=== PATIENT | male | born 1960 | race Caucasian/White ===

== ENCOUNTER 2020-07-21 14:47 | Inpatient (IN) | payer OTHER, SELFPAY ==
[2020-07-20] MEDS: NIFEdipine 30 MG TAB.ER.24 PO SCH (22:30)
[~2020-07-21] VITALS: Ht 170.2 cm; Wt 116.6 kg
--- NOTE | 2020-07-21 14:47 | NUR ---
Patient to ER bed 5 to gown for evaluation. Side rails up
[2020-07-21 14:50] VITALS: BP_SYST 159
[2020-07-21] MEDS ORDERED: LORazepam 2 MG/ML VIAL ONE (15:10)
[2020-07-21] MEDS ORDERED: LORazepam 2 MG/ML VIAL IVP ONE ×2 (15:15)
--- NOTE | 2020-07-21 15:50 | NUR ---
Pt came to ER for chief complaint of SOB, present anxious and yelling. Pt on guryola at this time, KELLY, awaiting
--- NOTE | 2020-07-21 16:00 | NUR ---
ER at bedside examining patient.
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
--- NOTE | 2020-07-21 16:55 | NUR ---
Pt yelling "I want Oxy, I want Bristow, I want Ativan!" Pt is in ravalon banging vital signs monitor against wall and bedrail. Monitor moved
[2020-07-21 16:57] LABS: BILIRUBIN,URINE NEGATIVE (NEGATIVE); BLOOD, URINE 1+ (NEGATIVE); CLARITY/URINE SL CLOUDY (CLEAR); COLOR,URINE BROWN (YELLOW); GLUCOSE,URINE NEGATIVE (NEGATIVE); KETONES,URINE NEGATIVE (NEGATIVE); LEUKOCYTE ESTERASE ,URINE 2+ (NEGATIVE); NITRITE, URINE NEGATIVE (NEGATIVE); PH,URINE 8.5 (5.0-8.0); PROTEIN URINE 2+ (NEGATIVE); UROBILINOGEN,URINE 0.2 (0.2-1.0)
--- NOTE | 2020-07-21 17:00 | NUR ---
Pt refusing BP, will allow pulse ox
[2020-07-21 17:20] LABS: BACTERIA,URINE MANY /HPF (None Seen); MUCUS,URINE None Seen /LPF (None Seen); TRIPLE PHOSPHATE CRYSTAL,UR 0-10 /HPF (None Seen); WBC,URINE 50-80 /HPF (0-3)
[2020-07-21 17:30] LABS: BASOPHILS % (AUTO) 0.3 % (0.0-2.0); EOSINOPHILS # (AUTO) 0.1 K/uL (0.0-0.4); EOSINOPHILS % (AUTO) 1.2 % (0.0-4.0); HEMATOCRIT 23.2 % (36-54); HEMOGLOBIN 8.1 g/dL (14.0-18.0); LYMPHOCYTES # (AUTO) 0.4 K/uL (1.0-5.5); LYMPHOCYTES % (AUTO) 3.9 % (20.5-51.5); MEAN CORPUSCULAR HEMOGLOBIN 32 pg (27-31); MEAN CORPUSCULAR HGB CONC 35 % (32-36); MEAN CORPUSCULAR VOLUME 93 fL (79.0-98.0); MONOCYTES # (AUTO) 0.2 K/uL (0.0-1.0); MONOCYTES % (AUTO) 2.3 % (1.7-9.3); NEUTROPHILS % (AUTO) 92.3 % (40.0-70.0); PLATELET COUNT (AUTO) 286 K/uL (130-430); WHITE BLOOD COUNT (AUTO) 9.8 K/uL (4.8-10.8)
[2020-07-21 17:36] LABS: CALCIUM 11.1 mg/dL (8.4-11.0); CREATININE 6.95 mg/dL (0.55-1.30); POTASSIUM 5.6 mmol/L (3.5-5.1)
[2020-07-21 17:48] LABS: ALBUMIN 2.7 g/dL (3.4-4.8); TOTAL BILIRUBIN 0.5 mg/dL (0.0-1.0)
[2020-07-21] MEDS ORDERED: ONDANSETRON HCL 4 MG/2 ML VIAL IVP ONE (18:00)
[2020-07-21] MEDS ORDERED: MORPHINE 4 MG INJ. 4 MG/ML VIAL IVP ONE (18:00)
[2020-07-21] MEDS ORDERED: cefTRIAXone 1 GM IVPB PREMIX 50 ML IV ONE (18:15)
--- NOTE | 2020-07-21 19:00 | NUR ---
report received from YUE Mckeon
[2020-07-21] MEDS ORDERED: DOCU-144 PO (19:19)
[2020-07-21] MEDS ORDERED: NPH,100I SQ (19:19)
[2020-07-21] MEDS ORDERED: OXYC10SY PO (19:19)
[2020-07-21] MEDS ORDERED: NIFE60TA83 PO (19:19)
[2020-07-21] MEDS ORDERED: LOVI30 SQ (19:19)
[2020-07-21] MEDS ORDERED: ASPI-1393 PO (19:19)
--- NOTE | 2020-07-21 19:20 | NUR ---
Patient arrives with Polst stating full code.
[2020-07-21] MEDS ORDERED: NEPH PO (19:21)
[2020-07-21] MEDS ORDERED: POLY17PO4 PO (19:22)
[2020-07-21] MEDS ORDERED: AMIN30LI2 PO (19:24)
[2020-07-21] MEDS ORDERED: LEVO500T89 PO (19:25)
[2020-07-21] MEDS ORDERED: LACT10SO7 PO (19:28)
[2020-07-21] MEDS ORDERED: REN800 PO (19:29)
[2020-07-21] MEDS ORDERED: FAMO-129 PO (19:29)
[2020-07-21] MEDS ORDERED: SENN8.6T19 PO (19:30)
[2020-07-21] MEDS ORDERED: OXYB5TAB18 PO (19:31)
[2020-07-21] MEDS ORDERED: DULO60CA41 PO (19:31)
[2020-07-21] MEDS ORDERED: BUME2TAB7 PO (19:32)
[2020-07-21] MEDS ORDERED: HYDR-4039 PO (19:33)
[2020-07-21] MEDS ORDERED: LORA-258 PO (19:34)
[2020-07-21] MEDS ORDERED: HYDR-500 PO (19:35)
[2020-07-21] MEDS ORDERED: IPRA3AMP9 INH (19:39)
[2020-07-21] MEDS ORDERED: BENZ1LOZ58 PO (19:41)
[2020-07-21] MEDS ORDERED: SIME80TA15 PO (19:42)
[2020-07-21] MEDS ORDERED: TEMA15CA5 PO (19:43)
[2020-07-21] MEDS ORDERED: LORA-259 PO (19:43)
[2020-07-21] MEDS ORDERED: HYDR-3925 PO (19:45)
[2020-07-21] MEDS ORDERED: ACET325T PO (19:50)
[2020-07-21] MEDS ORDERED: CARB30DR14 EACH EYE (19:53)
[2020-07-21] MEDS ORDERED: ONDA4TAB5 PO (19:54)
[2020-07-21] MEDS ORDERED: [UNRECOGNIZED DRUG - CODE] PO (19:54)
[2020-07-21] MEDS ORDERED: TRIA15CR3 TP (19:58)
--- NOTE | 2020-07-21 19:58 | NUR ---
Transfer to TELEMETRY via ACLS protocol. Licensed nurse present. IV present no signs or symptoms of infiltration.
[2020-07-21] MEDS ORDERED: MYCOLOG15O TP (20:02)
--- NOTE | 2020-07-21 20:03 | NUR ---
Medication reconciliation completed [facility] Any prior medication reconciliation on file was reviewed and corrected.
[2020-07-21] MEDS ORDERED: cefTRIAXone 1 GM VIAL ONE (20:17)
--- NOTE | 2020-07-21 20:17 | NUR ---
Admission Note Received patient from ER with diagnosis of SOB, uti, fluid overload. Initial Plan of Care discussed-patient verbalized understanding. Oriented to room, call light, pain management and safety.
--- NOTE | 2020-07-21 20:35 | NUR ---
HIGH ALERT NOTE/Morphine Called Dr. Short back identified within the medical roster to verify physician authenticity. Order for morphine 4mg IM once.
[2020-07-21] MEDS ORDERED: LEVALBUTEROL Tartrate 15 GM HFA. 45 mCg/Actuation INH ONE (20:40)
[2020-07-21] MEDS ORDERED: MORPHINE 4 MG INJ. 4 MG/ML VIAL IM ONE (20:45)
[2020-07-21] MEDS ORDERED: MORPHINE 4 MG INJ. 4 MG/ML VIAL ONE (20:49)
[2020-07-21] MEDS ORDERED: BENZOCAINE/MENTHOL 1 EACH LOZENGE PO PRN (21:00)
[2020-07-21] MEDS ORDERED: LevALBUTEROL HCL 1.25 MG/0.5 ML *CONC.* VIAL.NEB (XOPENEX CONC.) INH PRN ×2 (21:00)
[2020-07-21] MEDS ORDERED: NYSTATIN/TRIAMCIN 15 GM TOPICAL OINTMENT TP SCH (21:00)
[2020-07-21] MEDS ORDERED: ACETAMINOPHEN 325 MG TABLET PO PRN (21:00)
[2020-07-21] MEDS ORDERED: TRIAMCINOLONE ACETONIDE 0.025% 80 GM CREAM.GM. TP SCH (21:00)
[2020-07-21] MEDS: methylPREDNISolone SOD SUCC/PF 62.5 MG/ML VIAL IVP SCH ×2 (21:00→22:00)
[2020-07-21] MEDS: SIMETHICONE 80 MG TAB.CHEW PO SCH (21:00)
[2020-07-21] MEDS: DOCUSATE SODIUM 100 MG CAPSULE PO SCH (21:00)
[2020-07-21] MEDS ORDERED: NALOXONE HCL 0.4 MG/ML AMP (NARCAN) IVP PRN (21:00)
--- NOTE | 2020-07-21 21:00 | NUR ---
TRANSFER TO ICU PATIENT TRANSFERRED TO ICU AT THIS TIME VIA GURNEY, ESCORTED BY RN AND RT. REPORT GIVEN TO ICU NURSE. PATIENT IN BED, AWAKE, AGITATED, YELLING "I CAN'T BREATHE". NON REBREATHER ATTACHED PROPERLY, ON 15L OF OXYGEN. HOB RAISED. REBOLLAR ATTACHED, SECURED, AND DRAINING BY GRAVITY. NO IV SITE AT THIS TIME, PREVIOUS IV WAS REMOVED DURING TRANSFER, NO BLEEDING NOTED. BED ALARM ON. BED IS LOCKED AND AT LOWEST POSITION.
--- NOTE | 2020-07-21 21:05 | NUR ---
Transfer Pt transferred via bed with RN and RT following ACLS protocol. Pt awake and agitated, yelling "I can't breathe". Pt on 15 L O2 via non rebreather. Lou catheter in place and draining to gravity. Bedside report obtained from RN. Call light within reach, bed locked and in lowest position, safety precautions in place.
[2020-07-21] MEDS: LevALBUTEROL HCL 1.25 MG/0.5 ML *CONC.* VIAL.NEB (XOPENEX CONC.) INH SCH (21:12)
[2020-07-21 21:15] LABS: PROTHROMBIN TIME 9.8 SECS (9.5-12.5)
[2020-07-21 21:30] VITALS: BP_SYST 125
--- NOTE | 2020-07-21 21:30 | NUR ---
Pt laying in bed agitated and yelling. Pt alert to self and sometimes to place. Reoriented and redirected pt, pt confused and continues to yell. Pt on 15 L Nonrebreather @ 100%, oxygen saturations maintained above 90%. Pt edematous all over, HR NSR. HD port to R) chest. Attempted to insert PIV without any success. Lou catheter in place and draining to gravity.Call light within reach, bed locked and in lowest position, safety precautions in place.
[2020-07-21 21:35] VITALS: BP_SYST 150
--- NOTE | 2020-07-21 21:55 | NUR ---
Sister Shelli called for consent for , consent granted. Provided updates for Shelli and questions answered.
[2020-07-21 22:00] VITALS: BP_SYST 72
[2020-07-21] MEDS: TEMAZEPAM 15 MG CAPSULE PO SCH (22:00)
[2020-07-21] MEDS: OXYBUTYNIN CHLORIDE 5 MG TABLET PO SCH (22:00)
[2020-07-21] MEDS: BUMETANIDE 1 MG TABLET PO SCH (22:00)
[2020-07-21] MEDS: SENNOSIDES 8.6 MG TABLET PO SCH (22:30)
[2020-07-21] MEDS: hydrALAZINE HCL 25 MG TABLET PO SCH (22:30)
--- NOTE | 2020-07-21 22:30 | NUR ---
Pt laying in bed with eyes closed and bipap on. Oxygen saturations above 90%, breathing even and unlabored. Pt drowsy and unable to safely take PO medications. HD RN at bedside and ready to begin HD. Turned and repositioned pt. Call light within reach, safety precautions in place.
[2020-07-21 23:00] VITALS: BP_SYST 102
[2020-07-21] MEDS ORDERED: LEVALBUTEROL Tartrate 15 GM HFA. 45 mCg/Actuation INH SCH (23:00)
--- NOTE | 2020-07-21 23:00 | NUR ---
HD RN at bedside, HD started pt tolerating well.
[2020-07-21] MEDS ORDERED: ALBUMIN HUMAN 25% 100 ML IV ONE (23:34)
[2020-07-22] VITALS (14 sets, daily range): BP systolic 92–138
[2020-07-22] MEDS: LevALBUTEROL HCL 1.25 MG/0.5 ML *CONC.* VIAL.NEB (XOPENEX CONC.) INH SCH ×4 (00:19→19:30)
[2020-07-22] MEDS ORDERED: LevALBUTEROL HCL 1.25 MG/0.5 ML *CONC.* VIAL.NEB (XOPENEX CONC.) INH SCH (01:00)
[2020-07-22] MEDS ORDERED: HEPARIN SODIUM,PORCINE 5,000 UNITS/ML VIAL ONE (01:13)
--- NOTE | 2020-07-22 04:00 | NUR ---
Full linen change, CHG done. Pt was agitated and yelling with cares. Pt redirected and reoriented.
--- NOTE | 2020-07-22 05:00 | NUR ---
IV PLACEMENT: # 22 gauge angiocath placed to right forearm. Use of asceptic technique. Opsite placed over site. Blood return noted. Flushed with 10 cc of normal saline. No evidence of infiltration noted.
[2020-07-22] MEDS: BUMETANIDE 1 MG TABLET PO SCH ×3 (06:00→22:43)
[2020-07-22] MEDS: hydrALAZINE HCL 25 MG TABLET PO SCH ×3 (06:00→22:00)
[2020-07-22] MEDS: OXYBUTYNIN CHLORIDE 5 MG TABLET PO SCH ×3 (06:00→22:42)
[2020-07-22] MEDS: methylPREDNISolone SOD SUCC/PF 62.5 MG/ML VIAL IVP SCH ×3 (06:40→22:43)
[2020-07-22] MEDS: INSULIN REGULAR, HUMAN 100 UNITS/ML, 10 ML VIAL (humuLIN R) SUBCUT PRN ×4 (06:50→20:47)
[2020-07-22 07:04] LABS: CALCIUM 10.1 mg/dL (8.4-11.0); CREATININE 5.05 mg/dL (0.55-1.30); POTASSIUM 4.6 mmol/L (3.5-5.1)
--- NOTE | 2020-07-22 07:25 | NUR ---
CLOSING NOTE Endorsed SBAR report to oncoming RN for continuity of care.
--- NOTE | 2020-07-22 07:25 | NUR ---
Received patient and report from director of business development nurse. Patient in bed with side rails x 3 up. Call light with in reach.
[2020-07-22] MEDS ORDERED: PEG 400/HYPROMELLOSE/GLYCERIN 15 ML DROPS OP PRN (07:30)
[2020-07-22 07:50] LABS: BASOPHILS # (AUTO) 0.1 K/uL (0.0-0.2); BASOPHILS % (AUTO) 0.5 % (0.0-2.0); EOSINOPHILS % (AUTO) 0.4 % (0.0-4.0); HEMOGLOBIN 8.4 g/dL (14.0-18.0); LYMPHOCYTES # (AUTO) 0.3 K/uL (1.0-5.5); LYMPHOCYTES % (AUTO) 2.9 % (20.5-51.5); MEAN CORPUSCULAR HEMOGLOBIN 32 pg (27-31); MEAN CORPUSCULAR HGB CONC 34 % (32-36); MEAN CORPUSCULAR VOLUME 93 fL (79.0-98.0); MONOCYTES # (AUTO) 0.4 K/uL (0.0-1.0); MONOCYTES % (AUTO) 3.8 % (1.7-9.3); NEUTROPHILS # (AUTO) 10.8 K/uL (1.8-7.7); NEUTROPHILS % (AUTO) 92.4 % (40.0-70.0); PLATELET COUNT (AUTO) 309 K/uL (130-430); RED BLOOD CELL COUNT(AUTO) 2.68 MIL/uL (4.2-6.2); RED CELL DISTRIBUTION WIDTH 13.2 % (9.0-15.0); WHITE BLOOD COUNT (AUTO) 11.7 K/uL (4.8-10.8)
--- NOTE | 2020-07-22 07:50 | NUR ---
Dr. Black at bedside. Provided patient update. Received order to transfer pending Pulmo okay to transfer.
--- NOTE | 2020-07-22 08:10 | NUR ---
Dr. Murrieta at bedside. Provided patient update. Received okay to transfer.
[2020-07-22] MEDS: SEVELAMER CARBONATE 800 MG TABLET PO SCH ×3 (08:57→17:07)
[2020-07-22] MEDS: DOCUSATE SODIUM 100 MG CAPSULE PO SCH ×2 (09:00→20:29)
[2020-07-22] MEDS: NEPHROVITE, (FOLIC ACID/VITAMIN B COMP W-C 1 TAB) PO SCH ×2 (09:00→09:07)
[2020-07-22] MEDS: ENOXAPARIN SODIUM 30 MG/0.3 ML SYRINGE SQ SCH ×2 (09:00→09:10)
[2020-07-22] MEDS: SIMETHICONE 80 MG TAB.CHEW PO SCH ×3 (09:00→20:28)
[2020-07-22] MEDS: DULoxetine HCL 30 MG CAPSULE.DR (CYMBALTA) PO SCH (09:00)
[2020-07-22] MEDS: NIFEdipine 30 MG TAB.ER.24 PO SCH ×3 (09:00→20:45)
[2020-07-22] MEDS: ASPIRIN 81 MG TABLET(ECOTRIN) PO SCH (09:00)
[2020-07-22] MEDS: FAMOTIDINE 20 MG TABLET PO SCH (09:01)
[2020-07-22] MEDS: LACTULOSE 20 GM/30 ML UDC PO SCH ×3 (09:07→20:29)
[2020-07-22] MEDS: HYDROcodone/ACETAMIN 10-325 MG TAB PO PRN ×4 (10:38→22:41)
--- NOTE | 2020-07-22 11:02 | NUR ---
Called MD Ma and informed despite prn NORCO given patient stating still experiencing 10/10 pain and requesting IVP for chronic generalized pain. MD Ma new order morphine 2 mg IVP every 2 hours.
[2020-07-22] MEDS ORDERED: MORPHINE 2 MG/ML INJ. SYRINGE ONE (11:06)
[2020-07-22] MEDS: MORPHINE 2 MG/ML INJ. SYRINGE IVP PRN ×3 (11:10→20:30)
--- NOTE | 2020-07-22 11:40 | NUR ---
Patient transferred to tele floor room 134 with second assist via bed. Portable tele monitor placed. Patient tolerated transfer well on 4 liters nasal cannula. Gave update and endorsed patient to MST nurse. Patient stated thank you for care.
--- NOTE | 2020-07-22 12:02 | NUR ---
Transfer to [facility] Received report from CRITICAL CARE PHYSICIAN ASSISTANT. Patient stable. on 4L, nasal cannula and tolerating well. Bed locked and in lowest position. Call light within reach. bed alarm on. Will continue to monitor.
[2020-07-22] MEDS: NYSTATIN/TRIAMCIN 15 GM TOPICAL CREAM TP SCH ×2 (12:30→20:42)
[2020-07-22] MEDS: TRIAMCINOLONE ACETONIDE 0.025% 15 GM CREAM.GM. TP SCH ×2 (12:30→20:42)
--- NOTE | 2020-07-22 12:40 | NUR ---
Patient stated missing scratching stick. Looked in ICU room 3 and MST room 121 but unable to locate scratching stick. Notified tank house operator.
[2020-07-22] MEDS: CALCIUM CARBONATE 500 MG/ TAB.CHEW PO PRN ×3 (13:57→22:41)
--- NOTE | 2020-07-22 14:06 | NUR ---
PAGED DR SCHREIBERD DR GRIMES FOR ORDERS
--- NOTE | 2020-07-22 14:26 | NUR ---
Spoke to PICC line nurse, informed him of patient's porticath in right chest and no access for left arm. Said patient needs to be cleared by nephrology first. Spoke with Dr. Lennon, ordered triple lumen IJ instead. Charge nurse Katia made aware. PICC nurse informed.
--- NOTE | 2020-07-22 14:39 | NUR ---
CONSULTATION PAGED/CALLED Reason for Consultation: PICC LINE INSERTION Person Who was Notified: RALPH Consulting Physician: MAREK MCDONOUGH Personnel Adviser Specialty: SURG Ordering Physician: BETY
--- NOTE | 2020-07-22 14:42 | NUR ---
CONSULTATION PAGED/CALLED Reason for Consultation: AGGITATION, SCREAMING Person Who was Notified: DR SANTIZO Consulting Physician: DR SANTIZO Gate Guard Specialty: PSYCH Ordering Physician: DHARA
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
[2020-07-22] MEDS: LORazepam 1 MG TABLET PO PRN ×2 (18:15→23:24)
--- NOTE | 2020-07-22 18:35 | NUR ---
CLOSING NOTE PATIENT IS SITTING UP IN BED, VERY ANXIOUS, SCREAMING. ATIVAN 0.5MG GIVEN. REBOLLAR CATHETER ATTACHED DRAINING BY GRAVITY. BED LOCKED AND IN LOWEST POSITION. CALL LIGHT WITHIN REACH. BED ALARM ON. WILL ENDORSE TO NIGHT NURSE.
[2020-07-22] MEDS: cefTRIAXone 1 GM in D5W 50 ML IV SCH (20:29)
[2020-07-22] MEDS: QUEtiapine FUMARATE 25 MG TABLET PO SCH (20:40)
[2020-07-22] MEDS: TEMAZEPAM 15 MG CAPSULE PO SCH (20:41)
[2020-07-22] MEDS: SENNOSIDES 8.6 MG TABLET PO SCH (20:44)
[2020-07-22] MEDS ORDERED: HEPARIN SODIUM,PORCINE 5,000 UNITS/ML VIAL MC ONE ×2 (21:15)
--- NOTE | 2020-07-22 22:15 | NUR ---
HIGH ALERT NOTE: written order from dr killian under dialysis order.
--- NOTE | 2020-07-22 23:03 | NUR ---
HEPARIN TWO VIALS 5,000 UNITS GIVEN TO DIALYSIS NURSE .
--- NOTE | 2020-07-22 23:04 | NUR ---
HEMODIALYSIS ON GOING AT PATIENT BEDSIDE , tolerating .
--- NOTE | 2020-07-22 23:05 | NUR ---
APRESOLINE PO HELD PER HD NURSE .
[2020-07-22] MEDS: POLYETHYLENE GLYCOL 3350, 17 GM/ POWD.PACK PO PRN (23:24)
--- NOTE | 2020-07-22 23:40 | NUR ---
Apresoline 50 MG po held per HEMODIALYSIS Nurse low BP .
--- NOTE | 2020-07-23 00:10 | NUR ---
TURNING & Reposition patient on two hour schedule , off loading with pillows for EDEMA comfort measures implemented , position change tolerated .
[2020-07-23] MEDS: LevALBUTEROL HCL 1.25 MG/0.5 ML *CONC.* VIAL.NEB (XOPENEX CONC.) INH SCH ×4 (00:35→19:15)
[2020-07-23] MEDS: MORPHINE 2 MG/ML INJ. SYRINGE IVP PRN ×4 (00:41→16:55)
--- NOTE | 2020-07-23 04:09 | NUR ---
Miralax 17 GM po given for stool constipation results pending .
--- NOTE | 2020-07-23 04:10 | NUR ---
MORPHINE SULFATE 2 MG IVP ADMINISTER FOR ACUTE PAIN 09/23 & helpful , Resting .
[2020-07-23] MEDS: methylPREDNISolone SOD SUCC/PF 62.5 MG/ML VIAL IVP SCH ×2 (06:32→14:13)
[2020-07-23] MEDS: OXYBUTYNIN CHLORIDE 5 MG TABLET PO SCH ×2 (06:32→14:13)
[2020-07-23] MEDS: hydrALAZINE HCL 25 MG TABLET PO SCH ×2 (06:33→14:34)
[2020-07-23] MEDS: BUMETANIDE 1 MG TABLET PO SCH ×2 (06:34→14:34)
[2020-07-23] MEDS: INSULIN REGULAR, HUMAN 100 UNITS/ML, 10 ML VIAL (humuLIN R) SUBCUT PRN ×3 (06:37→17:12)
[2020-07-23 08:00] VITALS: BP_SYST 137
--- NOTE | 2020-07-23 08:00 | NUR ---
A/OX3. ON 4L; V/S STABLE. F/C IN PLACE. IV SITE AT RIGHT FA, #22, SITE INTACT AND PATENT. CALL LIGHT IN PLACE, BED LOCKED AT THE LOWEST POSITION, WILL CONTINUE TO MONITOR.
[2020-07-23] MEDS: DOCUSATE SODIUM 100 MG CAPSULE PO SCH (08:42)
[2020-07-23] MEDS: QUEtiapine FUMARATE 25 MG TABLET PO SCH (08:43)
[2020-07-23] MEDS: DULoxetine HCL 30 MG CAPSULE.DR (CYMBALTA) PO SCH (08:43)
[2020-07-23] MEDS: FAMOTIDINE 20 MG TABLET PO SCH (08:43)
[2020-07-23] MEDS: SEVELAMER CARBONATE 800 MG TABLET PO SCH ×4 (08:43→18:59)
[2020-07-23] MEDS: HYDROcodone/ACETAMIN 10-325 MG TAB PO PRN ×4 (08:43→23:33)
[2020-07-23] MEDS: NIFEdipine 30 MG TAB.ER.24 PO SCH (08:44)
[2020-07-23] MEDS: ASPIRIN 81 MG TABLET(ECOTRIN) PO SCH (08:44)
[2020-07-23] MEDS: SIMETHICONE 80 MG TAB.CHEW PO SCH (08:44)
[2020-07-23] MEDS: TRIAMCINOLONE ACETONIDE 0.025% 15 GM CREAM.GM. TP SCH (08:45)
[2020-07-23 08:50] LABS: ALBUMIN 2.8 g/dL (3.4-4.8); CALCIUM 8.2 mg/dL (8.4-11.0); CREATININE 3.79 mg/dL (0.55-1.30); POTASSIUM 4.2 mmol/L (3.5-5.1); TOTAL BILIRUBIN 0.3 mg/dL (0.0-1.0)
[2020-07-23] MEDS: ENOXAPARIN SODIUM 30 MG/0.3 ML SYRINGE SQ SCH (08:53)
[2020-07-23] MEDS: LACTULOSE 20 GM/30 ML UDC PO SCH ×3 (08:57→21:00)
[2020-07-23] MEDS: NYSTATIN/TRIAMCIN 15 GM TOPICAL CREAM TP SCH (08:58)
[2020-07-23] MEDS: NEPHROVITE, (FOLIC ACID/VITAMIN B COMP W-C 1 TAB) PO SCH (08:58)
[2020-07-23 09:35] LABS: LYMPHOCYTES # (AUTO) 0.2 K/uL (1.0-5.5); LYMPHOCYTES % (AUTO) 3.4 % (20.5-51.5); MEAN CORPUSCULAR HEMOGLOBIN 31 pg (27-31); MEAN CORPUSCULAR HGB CONC 34 % (32-36); MEAN CORPUSCULAR VOLUME 93 fL (79.0-98.0); MONOCYTES # (AUTO) 0.3 K/uL (0.0-1.0); MONOCYTES % (AUTO) 5.5 % (1.7-9.3); NEUTROPHILS # (AUTO) 4.7 K/uL (1.8-7.7); NEUTROPHILS % (AUTO) 91.1 % (40.0-70.0); PLATELET COUNT (AUTO) 254 K/uL (130-430); RED BLOOD CELL COUNT(AUTO) 2.17 MIL/uL (4.2-6.2); RED CELL DISTRIBUTION WIDTH 12.7 % (9.0-15.0); WHITE BLOOD COUNT (AUTO) 5.2 K/uL (4.8-10.8)
[2020-07-23 09:45] LABS: HEMATOCRIT 20.2 % (36-54); HEMOGLOBIN 6.8 g/dL (14.0-18.0)
--- NOTE | 2020-07-23 11:20 | NUR ---
PATIENT BS AT 257, 6 UNITS OF RI IS GIVEN.
--- NOTE | 2020-07-23 11:27 | NUR ---
Nutrition Update Dusty Scale 15 noted. Pt admitted for SOB, UTI. Diet: CCHO, 2 gm Na BMI: 41.4 kg/m2 RD to follow per nutrition care standards.
[2020-07-23 12:00] VITALS: BP_SYST 123
--- NOTE | 2020-07-23 14:00 | NUR ---
IV SITE STARTED AT RIGHT AC, #22, SL, SITE INTACT AND PATENT.
[2020-07-23 16:00] VITALS: BP_SYST 128
--- NOTE | 2020-07-23 16:09 | NUR ---
Dietitian Recommendations * Recommend CCHO, 2 gm Na diet w/ Glucerna BID * Encourage increase PO intakes LP, RD Please refer to Nutrition Assessment for details. Addendum: 07/23/20 at [address] Amended: Links added.
--- NOTE | 2020-07-23 17:00 | NUR ---
BS 215. 4 UNITS OF RI IS GIVEN PER SLIDING SCALE.
[2020-07-23] MEDS: CALCIUM CARBONATE 500 MG/ TAB.CHEW PO PRN (17:05)
--- NOTE | 2020-07-23 18:30 | NUR ---
DR. JULES IS CALLED ABOUT PATIENT'S INADEQUATE PAIN CONTROL. ORDER IS GIVEN.
[2020-07-23 19:00] VITALS: BP_SYST 146
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
--- NOTE | 2020-07-23 21:31 | NUR ---
Violet Ma s/w Sandie
[2020-07-23] MEDS: LORazepam 1 MG TABLET PO PRN (23:34)
[2020-07-23] MEDS: DIPHENHYDRAMINE HCL 25 MG CAPSULE PO PRN (23:34)
[2020-07-23] MEDS: TEMAZEPAM 15 MG CAPSULE PO SCH (23:35)
--- NOTE | 2020-07-23 23:53 | NUR ---
Violet Ma s/w Sandie
[2020-07-24] MEDS: DOCUSATE SODIUM 100 MG CAPSULE PO SCH ×3 (00:55→20:31)
[2020-07-24] MEDS: cefTRIAXone 1 GM in D5W 50 ML IV SCH (00:55)
[2020-07-24] MEDS: SIMETHICONE 80 MG TAB.CHEW PO SCH ×3 (00:56→20:31)
[2020-07-24] MEDS: NIFEdipine 30 MG TAB.ER.24 PO SCH ×3 (00:57→20:48)
[2020-07-24] MEDS: SENNOSIDES 8.6 MG TABLET PO SCH ×2 (00:57→20:31)
[2020-07-24] MEDS: QUEtiapine FUMARATE 25 MG TABLET PO SCH ×3 (00:57→20:32)
[2020-07-24] MEDS: NYSTATIN/TRIAMCIN 15 GM TOPICAL CREAM TP SCH ×3 (00:58→20:35)
[2020-07-24] MEDS: MUPIROCIN 2% TOPICAL OINTMENT 22 GM TP SCH ×3 (00:58→23:11)
[2020-07-24] MEDS: TRIAMCINOLONE ACETONIDE 0.025% 15 GM CREAM.GM. TP SCH ×3 (00:59→20:35)
[2020-07-24] MEDS: methylPREDNISolone SOD SUCC/PF 62.5 MG/ML VIAL IVP SCH ×4 (00:59→23:10)
[2020-07-24] MEDS: hydrALAZINE HCL 25 MG TABLET PO SCH ×4 (01:00→23:09)
[2020-07-24] MEDS: BUMETANIDE 1 MG TABLET PO SCH ×4 (01:01→23:18)
[2020-07-24] MEDS: OXYBUTYNIN CHLORIDE 5 MG TABLET PO SCH ×4 (01:01→23:09)
[2020-07-24] MEDS: INSULIN REGULAR, HUMAN 100 UNITS/ML, 10 ML VIAL (humuLIN R) SUBCUT PRN ×5 (01:09→23:00)
[2020-07-24] MEDS: CALCIUM CARBONATE 500 MG/ TAB.CHEW PO PRN ×3 (01:13→12:25)
[2020-07-24] MEDS: LevALBUTEROL HCL 1.25 MG/0.5 ML *CONC.* VIAL.NEB (XOPENEX CONC.) INH SCH ×4 (01:15→19:40)
[2020-07-24] MEDS: HYDROcodone/ACETAMIN 10-325 MG TAB PO PRN ×5 (03:49→22:37)
[2020-07-24 06:00] VITALS: BP_SYST 145
[2020-07-24 06:51] LABS: HEMOGLOBIN 7.8 g/dL (14.0-18.0); LYMPHOCYTES # (AUTO) 0.1 K/uL (1.0-5.5); LYMPHOCYTES % (AUTO) 1.7 % (20.5-51.5); MEAN CORPUSCULAR HEMOGLOBIN 31 pg (27-31); MEAN CORPUSCULAR HGB CONC 34 % (32-36); MEAN CORPUSCULAR VOLUME 92 fL (79.0-98.0); MONOCYTES # (AUTO) 0.1 K/uL (0.0-1.0); MONOCYTES % (AUTO) 1.9 % (1.7-9.3); NEUTROPHILS # (AUTO) 6.1 K/uL (1.8-7.7); NEUTROPHILS % (AUTO) 96.4 % (40.0-70.0); PLATELET COUNT (AUTO) 273 K/uL (130-430); RED BLOOD CELL COUNT(AUTO) 2.51 MIL/uL (4.2-6.2); RED CELL DISTRIBUTION WIDTH 14.1 % (9.0-15.0); WHITE BLOOD COUNT (AUTO) 6.3 K/uL (4.8-10.8)
[2020-07-24 07:04] LABS: CALCIUM 9.2 mg/dL (8.4-11.0); CREATININE 4.45 mg/dL (0.55-1.30); POTASSIUM 4.9 mmol/L (3.5-5.1)
[2020-07-24 08:00] VITALS: BP_SYST 120; BP_SYST 145
--- NOTE | 2020-07-24 08:00 | NUR ---
OPENING NOTES: PATIENT RESTING IN BED IN SEMI-MCKEON'S POSITION. BREATHING EVEN AND NON LABORED TO O2 AT 2L/MIN VIA NASAL CANNULA. IV PATENT WITH NO SIGNS OF INFILTRATION. SAFETY AND FALL PRECAUTION REINFORCED. BED LOCKED AND IN LOWEST POSITION. CALL LIGHT WITHIN REACH.
[2020-07-24] MEDS ORDERED: LevALBUTEROL HCL 1.25 MG/0.5 ML *CONC.* VIAL.NEB (XOPENEX CONC.) INH ONE ×2 (08:01→13:45)
--- NOTE | 2020-07-24 08:31 | NUR ---
INFORMED YUE "o" REJI THAT PT IS OFF MONITOR.
[2020-07-24] MEDS: LACTULOSE 20 GM/30 ML UDC PO SCH ×3 (09:00→20:48)
[2020-07-24] MEDS: SEVELAMER CARBONATE 800 MG TABLET PO SCH ×3 (09:18→17:35)
[2020-07-24] MEDS: ASPIRIN 81 MG TABLET(ECOTRIN) PO SCH (09:19)
[2020-07-24] MEDS: NEPHROVITE, (FOLIC ACID/VITAMIN B COMP W-C 1 TAB) PO SCH (09:20)
[2020-07-24] MEDS: DULoxetine HCL 30 MG CAPSULE.DR (CYMBALTA) PO SCH (09:20)
[2020-07-24] MEDS: FAMOTIDINE 20 MG TABLET PO SCH (09:20)
[2020-07-24] MEDS: ENOXAPARIN SODIUM 30 MG/0.3 ML SYRINGE SQ SCH (09:21)
[2020-07-24] MEDS: POLYETHYLENE GLYCOL 3350, 17 GM/ POWD.PACK PO PRN (09:23)
--- NOTE | 2020-07-24 11:09 | NUR ---
Wound Evaluation: Wound Consult ordered for Low Dusty Score. Patient evaluated for a low Dusty score of 13. Patient was awake, alert, oriented and received in a Brittaney Bed with an Isoflex DAVID mattress with low air loss therapy initiated. Patient needs assist to turn in bed. Skin assessment: 1. Right upper extremity: Ecchymosis, present on admission. Recommend: No dressings needed. Continue to monitor site every shift. 2. Right Lateral Breast Fold: Ecchymosis, present on admission. Recommend: No dressings needed. Continue to monitor site every shift. 3. Right Buttock Area of purple and pink discoloration, present on admission. Possible healing wound with small divot area vs sDTI. 4. Right Buttock/Gluteal Cleft: Area of purple and pink discoloration, present on admission. Recommend: Cover sites with moisture barrier cream, then foam dressing. Perform site care daily, and as needed for dressing soiling or dislodgment. 5. Left lower extremity: Dry scaly skin and multiple black scabs, present on admission. No odor, no drainage. 6. Right lower extremity: Dry scaly skin and multiple black scabs, present on admission. No odor, no drainage. Recommend: Cleanse involved areas with mild soap and water. Pat dry. Apply moisture barrier cream to dry scaly skin areas. Perform site care twice daily. Recommend: Encourage and assist patient with repositioning side to side only every 2 hours with pillow support. Elevate, off-load and float bilateral heels with pillows. Offload pressure areas with pillows for pressure re-distribution. Perform skin care and monitor skin integrity Q shift. Use moisture barrier cream on moisture susceptible areas QID and PRN for soiling. Maintain patient on a low air-loss mattress.
[2020-07-24 12:00] VITALS: BP_SYST 126
--- NOTE | 2020-07-24 13:03 | NUR ---
PAGE: SPOKE TO DR. ALBERT AND HE SAID HE WILL ASSESS THE PATIENT FOR DISCHARGE AND CAN NOT GIVE MORPHINE ORDER AT THIS TIME.
--- NOTE | 2020-07-24 13:06 | NUR ---
SPOKE TO PATIENT: SPOKE TO PATIENT THAT DR. ALBERT WILL ASSESS HIM FIRST AND NO MORPHINE ORDER WAS GIVEN.
--- NOTE | 2020-07-24 13:21 | NUR ---
[facility] /fax [phone]
[2020-07-24] MEDS: LORazepam 1 MG TABLET PO PRN (13:24)
[2020-07-24] MEDS ORDERED: HEPARIN SODIUM, PORCINE 10,000 UNITS/ 10 ML VIAL MC ONE (13:45)
--- NOTE | 2020-07-24 14:27 | NUR ---
HIGH ALERT NOTE: Called Dr. HALE back at [phone], identified within the medical roster to verify physician authenticity.
[2020-07-24] MEDS ORDERED: PIPERACILLIN/TAZO 3.375/DEX-IS 50 ML IV SCH (14:45)
[2020-07-24] MEDS ORDERED: HEPARIN SODIUM,PORCINE 5,000 UNITS/ML VIAL IV ONE (15:30)
[2020-07-24] MEDS: PIPERACILLIN/TAZO 2.25G/DEX-IS 50 ML IV SCH ×2 (15:40→23:20)
--- NOTE | 2020-07-24 16:18 | NUR ---
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 Alma will call Anabela at [phone] to give room.
[2020-07-24 16:47] VITALS: BP_SYST 144
--- NOTE | 2020-07-24 18:00 | NUR ---
REFUSED TELEMETRY MONITORING: PATIENT REFUSED TELEMETRY MONITORING AND PULLED OUT THE LEADS.
--- NOTE | 2020-07-24 19:09 | NUR ---
CLOSING NOTES: PATIENT EATING DINNER. UNCOOPERATIVE. NO SIGNS OF ACUTE DISTRESS. REFUSED TELEMETRY MONITORING. FALL, ISOLATION AND SAFETY PRECAUTION REINFORCED. REBOLLAR CATHETER DRAINING BY GRAVITY. CALL LIGHT WITHIN REACH.
--- NOTE | 2020-07-24 19:30 | NUR ---
CHANGE OF SHIFT; endorsed by day shift, no resp. distress. 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 on fall riskmprecautions, bed alarm. call light within reach.
--- NOTE | 2020-07-24 20:00 | NUR ---
NOTES: pt. talking on the phone. Dr. Short at [facility] talking to the pt. no further order.
--- NOTE | 2020-07-24 20:35 | NUR ---
NOTES: pt. awake, alert and oriented. on semi fowlers position. IV lock on rt. arm. perma cath on rt. subclavian for hemodialysis. on 2 liters O2 per nasal cannula, gets short of breath on exertion. pt. amputated left arm. pt. with generalized edema. tinsley cath to osd with small amts. of urine. abdomen distended. on monitoring specialist ,shows sinus rhythm. both legs with dry scaly skin , dry scabs.
[2020-07-24] MEDS: EMOLLIENT COMBINATION NO.73 78 GM CREAM..G. TP SCH (20:50)
--- NOTE | 2020-07-24 22:30 | NUR ---
NOTES: complete hs care done. repositioned, does not want to turn to sides, wants to stay on his back.
--- NOTE | 2020-07-24 22:52 | NUR ---
PAGED FOR ORDERS DIALED: [phone] SPOKE TO: AUTOMATED EXCHANGE
[2020-07-24 23:00] VITALS: BP_SYST 125
--- NOTE | 2020-07-24 23:00 | NUR ---
NOTES: called Dr. Short for BS 413, sliding coverage given , no additional coverage order.
[2020-07-24] MEDS: TEMAZEPAM 15 MG CAPSULE PO SCH (23:10)
--- NOTE | 2020-07-24 23:30 | NUR ---
NOTES: pt. had small pasty dark stool., ranjith care done.
[2020-07-25] MEDS: LevALBUTEROL HCL 1.25 MG/0.5 ML *CONC.* VIAL.NEB (XOPENEX CONC.) INH SCH ×4 (01:16→19:23)
[2020-07-25] MEDS: CALCIUM CARBONATE 500 MG/ TAB.CHEW PO PRN ×4 (01:35→21:05)
[2020-07-25] MEDS: HYDROcodone/ACETAMIN 10-325 MG TAB PO PRN ×5 (02:35→22:31)
[2020-07-25] MEDS: LORazepam 1 MG TABLET PO PRN ×2 (03:12→07:47)
--- NOTE | 2020-07-25 04:45 | NUR ---
NOTES: Dr. Short exchange called saying pt. has called them at least 3x. told them will inform pt. not to call.
--- NOTE | 2020-07-25 04:50 | NUR ---
NOTES: pt. checked, told him about calling Dr. Short exchange, he cannot call him directly. charge nurse Ilsa made aware. pt. starts complaining that Dr. Short is "killing him" since he cut him off of the Morphine.
[2020-07-25] MEDS: DIPHENHYDRAMINE HCL 25 MG CAPSULE PO PRN ×2 (05:13→13:07)
--- NOTE | 2020-07-25 05:15 | NUR ---
NOTES: pt. asked for Benadryl po and given. turn to his left side, felt he was going to have BM but false alarm. repositioned on his back, refused to turn on his sides. pt. needs attende. positioned comfortably. bruised skin under his rt. breast/chest area.
[2020-07-25] MEDS: methylPREDNISolone SOD SUCC/PF 62.5 MG/ML VIAL IVP SCH ×3 (05:19→22:33)
[2020-07-25] MEDS: PIPERACILLIN/TAZO 2.25G/DEX-IS 50 ML IV SCH ×3 (05:19→22:33)
[2020-07-25] MEDS: BUMETANIDE 1 MG TABLET PO SCH ×3 (05:21→22:34)
[2020-07-25 05:45] VITALS: BP_SYST 130
[2020-07-25] MEDS: hydrALAZINE HCL 25 MG TABLET PO SCH ×3 (05:51→22:32)
[2020-07-25] MEDS: OXYBUTYNIN CHLORIDE 5 MG TABLET PO SCH ×3 (06:34→22:33)
[2020-07-25] MEDS: INSULIN REGULAR, HUMAN 100 UNITS/ML, 10 ML VIAL (humuLIN R) SUBCUT PRN ×4 (06:43→21:33)
--- NOTE | 2020-07-25 06:48 | NUR ---
CLOSING NOTES; medicated with [place] for generalized pain. IV lock. tinsley intact. BS checked 204 with sliding scale coverage. O2 on continuouisly. for further care and assist. contact isolation observed. will endorse to incoming shift.call light within reach.
--- NOTE | 2020-07-25 07:15 | NUR ---
CONSULTATION PAGED/CALLED Reason for Consultation: ERSD Person Who was Notified: KARIN Consulting Physician: CJ WOODS DEVELOPMENT DISABILITY SPECIALIST Corrugator Machine Operator Specialty: NEPHRO Ordering Physician: GEOFFREY
[2020-07-25 07:50] VITALS: BP_SYST 157
[2020-07-25] MEDS: SEVELAMER CARBONATE 800 MG TABLET PO SCH ×3 (08:00→18:09)
--- NOTE | 2020-07-25 08:00 | NUR ---
Initial note: Patient is alert, orient ed x4, states having generalized pain 8/10 but it is not due for next pain medication. Patient has left arm amputation, strong right arm. He is bale to pull himself up on the bed with Trendelenburg position. He is on air mattress. Both legs are edema with lower legs dry scabs. Call light within reach, bed alarm on. Will continue monitor.
[2020-07-25] MEDS: DULoxetine HCL 30 MG CAPSULE.DR (CYMBALTA) PO SCH ×2 (09:00→09:48)
[2020-07-25] MEDS: LACTULOSE 20 GM/30 ML UDC PO SCH ×4 (09:00→21:00)
--- NOTE | 2020-07-25 09:00 | NUR ---
Patient is sleeping , no sign of pain or discomfort.
--- NOTE | 2020-07-25 09:00 | NUR ---
Nephro round: makes round and has ordered for a new Billing Administrator consult , ,
[2020-07-25] MEDS: EMOLLIENT COMBINATION NO.73 78 GM CREAM..G. TP SCH ×2 (09:45→21:09)
[2020-07-25] MEDS: SIMETHICONE 80 MG TAB.CHEW PO SCH ×2 (09:47→21:06)
[2020-07-25] MEDS: ASPIRIN 81 MG TABLET(ECOTRIN) PO SCH (09:47)
[2020-07-25] MEDS: ENOXAPARIN SODIUM 30 MG/0.3 ML SYRINGE SQ SCH (09:47)
[2020-07-25] MEDS: NIFEdipine 30 MG TAB.ER.24 PO SCH ×2 (09:48→21:07)
[2020-07-25] MEDS: NEPHROVITE, (FOLIC ACID/VITAMIN B COMP W-C 1 TAB) PO SCH (09:48)
[2020-07-25] MEDS: DOCUSATE SODIUM 100 MG CAPSULE PO SCH ×2 (09:48→21:07)
[2020-07-25] MEDS: QUEtiapine FUMARATE 25 MG TABLET PO SCH ×2 (09:49→21:06)
[2020-07-25] MEDS: MUPIROCIN 2% TOPICAL OINTMENT 22 GM TP SCH ×2 (10:15→21:08)
--- NOTE | 2020-07-25 11:30 | NUR ---
round: Dr. Short makes round. Inform him that patient requests to get back on Morphine IVP even lower dose. But states no IV pain medication order , keep Dumont PO with the same order.
[2020-07-25] MEDS ORDERED: FAMOTIDINE 20 MG TABLET PO ONE (11:45)
[2020-07-25] MEDS: FAMOTIDINE 20 MG TABLET PO SCH (11:54)
[2020-07-25] MEDS: TRIAMCINOLONE ACETONIDE 0.025% 15 GM CREAM.GM. TP SCH ×2 (11:55→21:08)
[2020-07-25] MEDS: NYSTATIN/TRIAMCIN 15 GM TOPICAL CREAM TP SCH ×2 (11:59→21:08)
[2020-07-25 12:00] VITALS: BP_SYST 149
[2020-07-25 16:00] VITALS: BP_SYST 150
[2020-07-25] MEDS: traMADol HCL HCL 50 MG TABLET (ULTRAM) PO PRN (16:18)
--- NOTE | 2020-07-25 16:58 | NUR ---
,Nephro round: Dr. Hoffman makes round for Dr. Veras, regarding new Nephro consult. He has new orders including HD for tomorrow.
--- NOTE | 2020-07-25 17:20 | NUR ---
Remove Lou catheter as MD ordered. Will continue voiding. Addendum: 07/25/20 at 1734 by Katie Desai RN Will continue monitor voiding.
--- NOTE | 2020-07-25 18:34 | NUR ---
Closing note: Patient is stable , no sign of distress distress. On Oxygen 2 L/M via NC ,no SOB.
--- NOTE | 2020-07-25 19:15 | NUR ---
OPENING NOTES Patient resting in bed - no s/s pain or distress noted. Respirations even and unlabored - head of bed elevated. IV site patent - no s/s redness, infection, or infiltration. Bed locked and in lowest position. Call light within reach. Bed alarm on.
[2020-07-25 20:00] VITALS: BP_SYST 114
[2020-07-25] MEDS: TEMAZEPAM 15 MG CAPSULE PO SCH (21:06)
[2020-07-25] MEDS: SENNOSIDES 8.6 MG TABLET PO SCH (21:06)
[2020-07-25] MEDS: MIDODRINE HCL 5 MG TABLET (PROAMATINE) PO SCH (21:06)
--- NOTE | 2020-07-25 22:00 | NUR ---
PATIENT REFUSE LEFT SIDE REPOSITIONING Patient refuses right side repositioning. patient insists to either be turned to the left or layed flat with head of bed elevated and legs elevated. will encourage left side turning throughout shift.
[2020-07-26] MEDS: traMADol HCL HCL 50 MG TABLET (ULTRAM) PO PRN
--- NOTE | 2020-07-26 | NUR ---
PATIENT STILL REFUSING RIGHT SIDE TURNING Patient refuses right side turning. Insists only to be laid supine or left side. Will encourage right side turning throughout shift.
[2020-07-26] MEDS: DIPHENHYDRAMINE HCL 25 MG CAPSULE PO PRN ×3 (00:04→20:56)
[2020-07-26] MEDS: LevALBUTEROL HCL 1.25 MG/0.5 ML *CONC.* VIAL.NEB (XOPENEX CONC.) INH SCH ×4 (00:38→19:28)
[2020-07-26 01:10] VITALS: BP_SYST 152
[2020-07-26] MEDS: CALCIUM CARBONATE 500 MG/ TAB.CHEW PO PRN ×3 (01:27→20:56)
[2020-07-26] MEDS: POLYETHYLENE GLYCOL 3350, 17 GM/ POWD.PACK PO PRN (02:10)
[2020-07-26] MEDS: HYDROcodone/ACETAMIN 10-325 MG TAB PO PRN ×5 (02:16→22:00)
[2020-07-26] MEDS: LORazepam 1 MG TABLET PO PRN (04:33)
[2020-07-26] MEDS: PIPERACILLIN/TAZO 2.25G/DEX-IS 50 ML IV SCH ×2 (05:09→14:01)
[2020-07-26] MEDS: methylPREDNISolone SOD SUCC/PF 62.5 MG/ML VIAL IVP SCH ×2 (05:11→14:02)
[2020-07-26] MEDS: OXYBUTYNIN CHLORIDE 5 MG TABLET PO SCH ×2 (05:12→14:01)
[2020-07-26] MEDS: hydrALAZINE HCL 25 MG TABLET PO SCH ×2 (05:12→14:11)
[2020-07-26] MEDS: BUMETANIDE 1 MG TABLET PO SCH ×2 (05:13→14:10)
--- NOTE | 2020-07-26 06:00 | NUR ---
PATIENT REFUSES RIGHT SIDE TURNING Patient refuses right side turning - prefers either supine or left side turning. Will endorse to dayshift to encourage laying right side.
[2020-07-26] MEDS: INSULIN REGULAR, HUMAN 100 UNITS/ML, 10 ML VIAL (humuLIN R) SUBCUT PRN ×4 (06:29→21:46)
--- NOTE | 2020-07-26 06:54 | NUR ---
CLOSING NOTES Patient resting in bed - no s/s pain or distress noted. Respirations even and unlabored - NC 2.0 head of bed elevated. No s/s hypoglycemia, skin warm and dry. IV site patent - no s/s redness, infection, or infiltration. bed locked and in lowest position. Call light within reach, bed alarm on.
--- NOTE | 2020-07-26 08:00 | NUR ---
INITIAL NOTE PATIENT IS RESTING, EASILY AROUSE , ON NC 4 L .VITAL STABLE . PATIENT IV IS PATIENT. DIALYSIS ACCESS ON R CHEST, THRILL PRESENT. PATIENT REPORT GENERALIZED PAIN. INFORM PATIENT WILL BE BACK WITH PAIN MED. CALL LIGHT IN REACH, SAFETY MAINTAINED
[2020-07-26 08:35] LABS: BASOPHILS % (AUTO) 0.1 % (0.0-2.0); HEMATOCRIT 26.7 % (36-54); LYMPHOCYTES # (AUTO) 0.2 K/uL (1.0-5.5); MEAN CORPUSCULAR HEMOGLOBIN 31 pg (27-31); MEAN CORPUSCULAR HGB CONC 34 % (32-36); MEAN CORPUSCULAR VOLUME 91 fL (79.0-98.0); MONOCYTES # (AUTO) 0.2 K/uL (0.0-1.0); MONOCYTES % (AUTO) 2.1 % (1.7-9.3); NEUTROPHILS # (AUTO) 8.3 K/uL (1.8-7.7); NEUTROPHILS % (AUTO) 95.8 % (40.0-70.0); PLATELET COUNT (AUTO) 350 K/uL (130-430); RED BLOOD CELL COUNT(AUTO) 2.92 MIL/uL (4.2-6.2); RED CELL DISTRIBUTION WIDTH 13.6 % (9.0-15.0); WHITE BLOOD COUNT (AUTO) 8.7 K/uL (4.8-10.8)
[2020-07-26 08:37] LABS: CALCIUM 9.6 mg/dL (8.4-11.0); CREATININE 4.41 mg/dL (0.55-1.30); POTASSIUM 5.4 mmol/L (3.5-5.1)
--- NOTE | 2020-07-26 09:00 | NUR ---
PAIN NOROCO GIVEN. CALL LIGHT IN REACH, SAFETY MAINTAINED
[2020-07-26] MEDS: SEVELAMER CARBONATE 800 MG TABLET PO SCH ×3 (09:38→17:39)
[2020-07-26] MEDS: SIMETHICONE 80 MG TAB.CHEW PO SCH ×2 (09:39→20:56)
[2020-07-26] MEDS: MIDODRINE HCL 5 MG TABLET (PROAMATINE) PO SCH ×2 (09:39→20:56)
[2020-07-26] MEDS: ASPIRIN 81 MG TABLET(ECOTRIN) PO SCH (09:39)
[2020-07-26] MEDS: DULoxetine HCL 30 MG CAPSULE.DR (CYMBALTA) PO SCH (09:39)
[2020-07-26] MEDS: NEPHROVITE, (FOLIC ACID/VITAMIN B COMP W-C 1 TAB) PO SCH (09:39)
[2020-07-26] MEDS: LACTULOSE 20 GM/30 ML UDC PO SCH ×3 (09:40→21:00)
[2020-07-26] MEDS: DOCUSATE SODIUM 100 MG CAPSULE PO SCH ×2 (09:40→20:59)
[2020-07-26] MEDS: NIFEdipine 30 MG TAB.ER.24 PO SCH ×2 (09:40→21:08)
[2020-07-26] MEDS: FAMOTIDINE 20 MG TABLET PO SCH (09:40)
[2020-07-26] MEDS: ENOXAPARIN SODIUM 30 MG/0.3 ML SYRINGE SQ SCH (09:42)
[2020-07-26] MEDS: NYSTATIN/TRIAMCIN 15 GM TOPICAL CREAM TP SCH ×2 (10:01→21:02)
[2020-07-26] MEDS: TRIAMCINOLONE ACETONIDE 0.025% 15 GM CREAM.GM. TP SCH ×2 (10:01→21:01)
[2020-07-26] MEDS: QUEtiapine FUMARATE 25 MG TABLET PO SCH ×2 (10:02→20:56)
[2020-07-26] MEDS: EMOLLIENT COMBINATION NO.73 78 GM CREAM..G. TP SCH ×2 (10:02→21:02)
[2020-07-26] MEDS: MUPIROCIN 2% TOPICAL OINTMENT 22 GM TP SCH ×2 (10:02→21:02)
--- NOTE | 2020-07-26 11:20 | NUR ---
HIGH ALERT NOTE: Called Dr. HALE back at [phone] identified within the medical roster to verify physician authenticity. HIGH ALERT FOR HEPARIN FOR DIALYSIS.
[2020-07-26] MEDS ORDERED: HEPARIN SODIUM,PORCINE 5,000 UNITS/ML VIAL MC ONE (11:30)
[2020-07-26 12:00] VITALS: BP_SYST 149
--- NOTE | 2020-07-26 13:03 | NUR ---
Nutrition F/U Admitting Diagnosis: SOB, UTI Medical History Comment: PMH: HTN, DM, ESRD, HD, morbid obesity, and chronic back pain per physician notes Pt also found w/ fluid overload per physician notes SARS-CoV-2 Ag (Rapid) Negative 07/21 Subjective Information: RD bedside visit deferred d/t isolation precaution and pt did not answer RD phone call (([phone]). Per EMR review, last BM 07/24 x1, was seen by Squadron Worker on 07/24 and no pressure injury noted. Pt is for dialysis today. PO intake records indicate PO intake remains inadequate and meets <75% of estimated needs. Encourage pt to increase PO. RD noted elevated K, and pt needs renal diet. Current Diet Order/Nutrition Support: CCHO, 2 gm Na diet, Glucerna BID x 3 days Pertinent Medications: nephrovite, bumex, solu-medrol, SSI, Lovenox, Cymbalta, Renvela, Senokot, Miralax, Colace Pertinent Labs: 07/26: Na 129L, K 5.4H, BG 330H, POC BG 320H, BUN 58H, Cre 4.41H Height: 5 feet, 7.00 inches Weight: 264 pounds/ 119.203600 kilograms. New weight: 257#/ 116.6 kg (07/24) --7# wt change since admission Body Mass Index: 41.34 kg/m2 Tamms/Adjusted Body Weight: 148#/67 kg. Estimated Energy Expenditure (kcals/day) 0378-8695 kcal/day (25-30 kcal/kg IBW d/t maintenance) Estimated Protein Required (g/day) 80-101 gm/day (1.2-1.5 gm/kg IBW d/t ESRD, HD) Estimated Fluid Required (l/day) Per physician d/t ESRD Problem/Etiology/Signs/Symptoms Altered nutrition-related labs related to endocrine and renal dysfunction as evidenced by abnormal Na, BUN, BG, and POC BG lab values. (*ongoing) Inadequate protein-energy intake r/t poor appetite AEB PO intake meets <75% of estimated needs. (*new) Expected Outcomes/Goals - Monitor appetite and PO intakes w/ goal of pt meeting at least 75% of estimated nutritional needs, labs trending WNL, normal GI function, and skin integrity/wt maintenance Dietitian Recommendations * Recommend CCHO, Renal diet diet w/ Nepro BID * Encourage increase PO intakes Follow Up High Risk: F/U in 2-3days
--- NOTE | 2020-07-26 13:12 | NUR ---
Dietitian Recommendations * Recommend CCHO, Renal diet diet w/ Nepro BID * Encourage increase PO intakes Please see Nutrition F/U for details. [facility], RD
--- NOTE | 2020-07-26 13:17 | NUR ---
Heparin scanned and given to hemodialysis nurse to be administered into hemodialysis ports at this time.
--- NOTE | 2020-07-26 15:12 | NUR ---
GINA planning spoke with Economic Research Analyst Anabela - at this time she is trying to find an ambulance to fruit or nut picker the patient for potential discharge today - patient needs a bariatric gurney and oxygen for transport - will follow up as needed. Addendum: 07/26/20 at 1618 by Alphonso Streeter RN Paged Dr. Shah regarding clearance for discharge back to SNF today.
--- NOTE | 2020-07-26 17:15 | NUR ---
Second page to Dr. Shah to obtain clearance for potential discharge to SNF tonight. Addendum: 07/26/20 at 1820 by Al[address]so Streeter RN Dr. Gamez returned page and stated patient is okay to discharge to SNF.
--- NOTE | 2020-07-26 18:21 | NUR ---
Ambulance Driving Instructor with [facility] arranged for 10-10:30pm tonrenato, this is the earliest diamond picker time available - spoke with Herbie. [facility] [phone]
--- NOTE | 2020-07-26 18:40 | NUR ---
CLOSING NOTE PATIENT PASSED BOWEL MOVMENT. CLEANED AND CHARGED. INFORMED PATIENT OF DISCHARGE PLAN. ALL NEEDS BEEN MET DURING SHIFT. CALL LIGHT IN REACH, SAFETY MAINTAINED
--- NOTE | 2020-07-26 20:46 | NUR ---
[facility] SPOKE WITH JUAN JOSE AND INFORMED HER THAT AMBULANCE ELECTRIC TRAIN DRIVER IS [facility] [phone] SHE SAID THEY STILL WILL TAKE THE PT.. INFORMED PUBLIC SERVICE DIRECTOR AND RN OF THIS INFO
[2020-07-26] MEDS: TEMAZEPAM 15 MG CAPSULE PO SCH (20:56)
[2020-07-26] MEDS: SENNOSIDES 8.6 MG TABLET PO SCH (20:56)
[2020-07-26 22:10] VITALS: BP_SYST 111
--- NOTE | 2020-07-26 23:00 | NUR ---
[facility] ambulance here. Pt agreeable of transfer back to [facility]. Report given to YUE Cruz pt to go to Room 100-B. Patient in stable condition, ID band removed. Patient educated on pain management. All belongings sent with patient cellphone, [employer], and eyeglasses.
== END 2020-07-26 23:00 | DRG 194 ==
LOC: SED 14:47 → STU 18:24 → SIC 20:03 → STU 07-22 12:40 → SMU 07-25 19:33
PROVIDERS: ADMIT Family Medicine; ATTEND Family Medicine
PROC: 5A1D70Z Performance of Urinary Filtration, Intermittent, Less than 6 Hours Per Day (ICD-10-PCS; 2020-07-21)
PROC: 5A09357 Assistance with Respiratory Ventilation, Less than 24 Consecutive Hours, Continuous Positive Airway Pressure (ICD-10-PCS; 2020-07-21)
PROC: 5A1D70Z Performance of Urinary Filtration, Intermittent, Less than 6 Hours Per Day (ICD-10-PCS; 2020-07-22)
PROC: 30233N1 Transfusion of Nonautologous Red Blood Cells into Peripheral Vein, Percutaneous Approach (ICD-10-PCS; principal; 2020-07-23)
PROC: 5A1D70Z Performance of Urinary Filtration, Intermittent, Less than 6 Hours Per Day (ICD-10-PCS; 2020-07-24)
PROC: 5A1D70Z Performance of Urinary Filtration, Intermittent, Less than 6 Hours Per Day (ICD-10-PCS; 2020-07-26)
DX: I13.2 Hypertensive heart and chronic kidney disease with heart failure and with stage 5 chronic kidney disease, or end stage renal disease (principal); J96.01 Acute respiratory failure with hypoxia; G82.50 Quadriplegia, unspecified; G93.41 Metabolic encephalopathy; E87.5 Hyperkalemia; N39.0 Urinary tract infection, site not specified; E11.22 Type 2 diabetes mellitus with diabetic chronic kidney disease; N18.6 End stage renal disease; E87.1 Hypo-osmolality and hyponatremia; E66.01 Morbid (severe) obesity due to excess calories; Z20.822 Contact with and (suspected) exposure to COVID-19; F29 Unspecified psychosis not due to a substance or known physiological condition; I50.43 Acute on chronic combined systolic (congestive) and diastolic (congestive) heart failure; D64.9 Anemia, unspecified; E83.52 Hypercalcemia; G89.29 Other chronic pain; Z99.2 Dependence on renal dialysis; Z68.41 Body mass index [BMI] 40.0-44.9, adult; Z88.8 Allergy status to other drugs, medicaments and biological substances; Z91.09 Other allergy status, other than to drugs and biological substances; E44.1 Mild protein-calorie malnutrition
CPT/HCPCS: 36415; 71045; 80048; 80053; 81000; 82962; 83880; 84484; 85025; 85379; 85610-TC; 85730-TC; 86886; 86900; 86901; 86920; 87040-TC; 87081; 87086; 90935; 90937; 93005; 94640; 94660; 94760; 96365; 96375; 99285; G0378; J0696; J1644; J1650; J1815; J2060; J2270; J2405; J2543; J2930; J7030; J7040; J7050; J7060; J7612; P9021; P9046; Q0163